=== PATIENT | male | born 1935 | race Caucasian/White ===

== ENCOUNTER → 2016-11-10 | Outpatient (CLI) | payer BC ==
[~2016-11-10] MED LIST: ASCO500T3 PO; MULT-506 PO; NMN10 PO; OMEG10007 PO; RIVA3CAP2 PO; SILD100T PO
--- NOTE | 2016-11-10 11:22 | DIAGNOSTIC IMAGING REPORT ---
TWO VIEW CHEST CLINICAL HISTORY: Cough. FINDINGS: PA and lateral chest radiographs are obtained. No prior studies are available for comparison at the time of dictation. The heart is enlarged and there is atherosclerotic calcification of the thoracic aorta. The pulmonary vasculature is noncongested. An accessory azygous fissure is incidentally noted. Nonspecific interstitial thickening is observed. There is minimal left basilar atelectasis. No airspace consolidation or pleural effusion is identified. There is no pneumothorax. The skeletal structures are osteopenic. There are healed right-sided rib fractures. Degenerative change is noted throughout the thoracic spine. IMPRESSION: Cardiac enlargement with no acute cardiopulmonary abnormality. Electronically signed by: Shad Holm M.D. 11/10/2016 11:21 AM Dictated Date/Time: 11/10/2016 11:20 AM
== END | disposition home or self-care (01) ==
LOC: C.RAD1850 11:01
PROVIDERS: ATTEND Family Medicine
DX: R05 Cough (principal); Z87.891 Personal history of nicotine dependence

== ENCOUNTER → 2016-12-11 | Outpatient (CLI) | payer BC | END | disposition home or self-care (01) | LOC: C.MAMM 13:40 | PROVIDERS: ATTEND Family Medicine | DX: M85.852 Other specified disorders of bone density and structure, left thigh (principal) ==

== ENCOUNTER 2020-11-15 08:39 | Observation (INO) ==
--- NOTE | 2020-10-25 11:07 | PAT Medication Instructions ---
Medication Instructions Date of Service October 25, 2020 Home Medications Medication Instructions Recorded sildenafil 100 mg tablet 100 mg PO DAILY PRN #20 tab 06/27/19 amlodipine [Norvasc] 2.5 mg PO QPM #30 tab 08/20/20 lisinopril [Zestril] 2.5 mg PO QAM #15 tab 08/20/20 diclofenac sodium 75 mg 75 mg PO BID PRN #60 tab 10/09/20 tablet,delayed release memantine 10 mg tablet 10 mg PO BID multivitamin 1 tab PO QAM rivastigmine tartrate 1.5 mg capsule 1.5 mg PO PM sildenafil 100 mg tablet 100 mg PO DAILY PRN aspirin [Aspirin Low Dose] 81 mg PO Q OTHER DAY cholecalciferol (vitamin D3) [Vitamin D3] 25 mcg PO QAM ibandronate 150 mg PO MONTHLY rivastigmine tartrate 3 mg PO QAM amlodipine [Norvasc] 2.5 mg PO QPM lisinopril [Zestril] 2.5 mg PO QAM diclofenac sodium 75 mg tablet,delayed release 75 mg PO BID PRN Continue as directed aspirin [Aspirin Low Dose] 81 mg PO Q OTHER DAY (OK to take on day of surgery unless otherwise instructed by your surgeon) ibandronate 150 mg PO MONTHLY (just do not take on day of surgery if scheduled) ASK your surgeon for instructions diclofenac sodium 75 mg tablet,delayed release 75 mg PO BID PRN STOP taking 24 hours before surgery rivastigmine tartrate 1.5 mg capsule 1.5 mg PO PM rivastigmine tartrate 3 mg PO QAM *Do not take AM or PM dose the day before surgery, and do not take on the day of surgery* DO NOT take the morning of surgery multivitamin 1 tab PO QAM sildenafil 100 mg tablet 100 mg PO DAILY PRN cholecalciferol (vitamin D3) [Vitamin D3] 25 mcg PO QAM lisinopril [Zestril] 2.5 mg PO QAM Take morning of surgery With a small sip of water, OTHERWISE NOTHING TO EAT OR DRINK AFTER MIDNIGHT: memantine 10 mg tablet 10 mg PO BID Take evening before surgery memantine 10 mg tablet 10 mg PO BID amlodipine [Norvasc] 2.5 mg PO QPM Other Notes If you have any questions please call us at [phone] or [phone] or [phone] or [phone]
--- NOTE | 2020-10-26 09:44 | Anesthesiology Consultation ---
Date of Service October 26, 2020 Assessment & Plan (1) Encounter for pre-operative examination: COVID Status: As of 10/26 assessment, patient denies travel to endemic area, known exposure/sick contacts, or symptoms of COVID19. Patient instructed that they and their household members must follow strict social distancing guidelines, wear a mask in public and avoid travel/events/gatherings for 14 days prior to surgery. Preoperative COVID19 testing to be completed prior to surgery per surgeon's arrangements (11/09). Patient made aware to self-isolate as much as possible between COVID testing and surgery. Please note, without hearing aids patient is extremely hard of hearing. L ear is better than right ear, but once aids are removed pt will be essentially deaf. Chart Review Chart Review: Acceptable Risk for Surgery and Patient seen in Pre Admission Testing Teaching & Discussion Instructed NPO after midnight before surgery, except medications with 15 cc of water. Medication instructions provided according to the PAT guidelines. History Surgery Operation Date: 11/15/20 11:15 Proposed Procedures p Left Total Knee Arthroplasty - Bob Guerrero MD Height/Weight Height: 6 ft Weight: 93.9 kg Allergies Allergy/AdvReac Type Severity Reaction Status Date / Time morphine Allergy Mild Vomiting Verified 10/25/20 09:34 donepezil Allergy Unknown nightmares Verified 10/25/20 09:34 Sulfa (Sulfonamide Allergy Unknown Rash Verified 10/25/20 09:34 Antibiotics) Medications Home Medications Medication Instructions Recorded Confirmed Last Taken memantine 10 mg tablet 10 mg PO BID 04/24/19 10/25/20 08/19/20 multivitamin 1 tab PO QAM 04/24/19 10/25/20 08/19/20 rivastigmine tartrate 1.5 mg 1.5 mg PO PM 04/24/19 10/25/20 08/18/20 capsule sildenafil 100 mg tablet 100 mg PO DAILY PRN #20 tab 06/27/19 10/25/20 Unknown aspirin [Aspirin Low Dose] 81 mg PO Q OTHER DAY 08/19/20 10/25/20 08/18/20 cholecalciferol (vitamin D3) 25 mcg PO QAM 08/19/20 10/25/20 08/19/20 [Vitamin D3] ibandronate 150 mg PO MONTHLY 08/19/20 10/25/20 07/23/20 rivastigmine tartrate 3 mg PO QAM 08/19/20 10/25/20 08/19/20 amlodipine [Norvasc] 2.5 mg PO QPM #30 tab 08/20/20 10/25/20 Unknown lisinopril [Zestril] 2.5 mg PO QAM #15 tab 08/20/20 10/25/20 Unknown diclofenac sodium 75 mg 75 mg PO BID PRN #60 tab 10/09/20 10/25/20 Unknown tablet,delayed release Past Medical History Medical History Benign localized hyperplasia of prostate with urinary obstruction Chest pain Isolated event on 08/19/20, seen at [facility] ED. Cardiac workup negative, ruled GI-related/heartburn. OP stress test 08/20/20 negative for ischemia. Left knee DJD Obstructive sleep apnea CPAP, pt reports full compliance Osteoarthritis Senile dementia Patient is on memantine and rivastigmine. However, feels his confusion is more related to being [place] and missing information, as he retains information that he hears. Exercise / Class Metabolic Activity II 4-5 Yardwork/Stairs/Walk up hill (Using walker for longer distances, can do 1 FOS without CP or SOB) Past Family History Family History Father Lung cancer Daughter Sleep apnea Sister Sleep apnea Other Alzheimer disease Past Surgical History Surgical History History of anesthesia reaction DISORIENTED SLOW TO WAKE UP History of cataract extraction R/L History of colonoscopy History of eye surgery DETACHED RETINA History of hernia repair R/L-TOTAL 3 History of rotator cuff surgery bilateral Past Anesthesia History No Hx of Anesthesia Complications (other than remote h/o delirium/confusion with GA) and No Family Hx of Anesthesia Complications History of PONV No Hx of PONV and No Hx of Motion Sickness Social History Smoking Status: Former smoker Do You Dip or Chew Tobacco: No Smoking End Date: QUIT 30+ YRS AGO Hx Alcohol Use: Yes Alcohol type: beer alcohol intake frequency: a few times a month Hx Substance Use: No Review of Systems Pt denies any recent shortness of breath, palpitations, cough, fever, URI, or uncontrolled acid reflux. No chest pain or reflux symptoms since ER visit 08/19/20 ruled to be GI-related. Physical Exam Vital Signs BP: 120/74 P: 52bpm SPO2: 96% RA T: 98.2 F R: 16 ENMT Mouth: + dentures, + edentulous and + macroglossia Thyromental Distance: > or= 3.5 Finger Breadths Mallampati Class: III Neck + facial hair; neck extension not limited Respiratory normal respiratory effort, lungs clear to auscultation + prolonged expiratory phase Cardiovascular Rate/Rhythm: regular rhythm and + bradycardic Heart Sounds: no murmur Extremities: + edema (trace pedal B/L) Testing Laboratory Results 10/26/20 10:06 10/26/20 10:06 PT 10.9 Seconds (9.0-12.0) 10/26/20 10:06 INR 1.1 (0.9-1.1) 10/26/20 10:06 APTT 26.5 Seconds (21.0-31.0) 10/26/20 10:06 Blood Type AB Positive 10/26/20 10:06 Antibody Screen NEGATIVE 10/26/20 10:06 Electrocardiogram Date: 08/19/20 Findings: + SB @ (53bpm) Left axis deviation. Minimal voltage criteria for LVH, may be normal variant. Compared to EKG of 12/26/2013, PVCs are no longer present. Chest X-Ray Date: 08/19/20 FINDINGS: Incidental note is made of an azygos fissure. There is no pneumothorax or pleural effusion. Cardiomegaly is unchanged. There is mild interstitial thickening and bibasilar opacities. IMPRESSION: 1. Pulmonary vascular congestion with possible mild pulmonary edema. 2. Bibasilar opacities which may reflect atelectasis or an infectious process*. Radiographic follow-up is recommended. *See CTA below confirming atelectasis in lung bases. Stress Test Date: 08/20/20 Type: exercise Resting EF: 65-70% Normal stress echo at 7.6 METs and peak HR of 93% MPHR. No exercise-induced chest pain. No EKG changes. Baseline echocardiogram notes normal LV systolic function without WMA. Other Testing Chest CTA 08/19/2020 IMPRESSION: 1. No pulmonary emboli identified although segmental and subsegmental pulmonary arteries within the lower lobes are suboptimally assessed due to respiratory motion. 2. Moderate cardiomegaly. 3. Bilateral lower lobe airspace opacities which favor atelectasis. 4. Ectatic ascending aorta, measuring 4.3 cm. Lumbar spine MRI 06/20/2020 FINDINGS: Lumbar spine: Marrow signal intensity is heterogeneous. Vertebral body height and alignment are maintained throughout the lumbar spine. Anterior and lateral marginal osteophytes are seen throughout. There is no evidence of spondylolysis. No destructive bony lesion is seen. Hemangiomas are noted in the bodies of T12 and L3. Chronic degenerative endplate change is seen at all lumbar levels. Mild endplate edema is noted at T12-L1 and L3-L4. Intravertebral discs: Degenerative disc desiccation and loss of height is seen throughout the lumbar spine. Loss of height is moderate at L1-L2 and L2-L3. Spinal cord: The visualized spinal cord is normal in morphology and signal intensity. The conus medullaris terminates at the T12-L1 interspace. The nerve roots of the cauda equina are normal in morphology. T11-T12: There is a small posterior disc osteophyte complex. The central canal and neural foramina are clear. T12-L1: There is a small posterior disc bulge. The central canal and neural foramina are patent. L1-L2: There is broad-based posterior disc bulge with annular fissure. There is no significant acquired compromise of the central canal. There is bilateral subarticular stenosis. In conjunction with facet arthropathy this causes mild bilateral neural foraminal narrowing. L2-L3: There is a small posterior disc osteophyte complex. No significant acquired compromise of the central canal is identified. There is bilateral subarticular stenosis, with possible impingement on the exiting left L2 nerve root. Disc osteophyte complex also abuts the transiting nerve roots. In conjunction with facet arthropathy there is mild bilateral neural foraminal narrowing. L3-L4: There is broad-based posterior disc bulge with annular fissure. In conjunction with hypertrophy of the ligamentum flavum there is mild acquired compromise of the central canal with a minimum AP diameter of 7 mm. There is bi lateral subarticular stenosis, with probable impingement on the exiting L3 nerve roots. The disc bulge also abuts the transiting nerve roots. In conjunction with facet arthropathy there is moderate to severe left and moderate right neural foraminal stenosis. L4-L5: There is a small posterior disc bulge, with no significant acquired compromise of the central canal. There is bilateral subarticular stenosis. In conjunction with lateral osteophytosis and facet arthropathy, facet arthropathy contributes to mild right neural foraminal stenosis. L5-S1: The central canal is clear. Facet arthropathy causes minimal left-sided neural foraminal narrowing. Sacrum: The visualized sacrum is normal in morphology and signal intensity. Soft tissues: There is mild fatty atrophy of the paraspinous musculature. Bilateral renal cysts measure up to 3.3 cm. The retroperitoneal structures are otherwise grossly unremarkable but incompletely evaluated. There is severe left- sided neural foraminal stenosis with probable impingement on the exiting left L4 nerve root. IMPRESSION: 1. Multilevel lumbosacral spondylosis as above. See discussion for detailed level by level analysis. 2. Degenerative disc disease as above. 3. No destructive bony lesion is seen.
[2020-10-26 11:04] LABS: Basophils # (auto) 0.02 K/uL (0-0.2); Basophils % (auto) 0.2 %; Eosinophils # (auto) 0.23 K/uL (0-0.5); Eosinophils % (auto) 2.8 %; Hematocrit (blood only) 45.7 % (42-52); Hemoglobin 15.3 g/dL (14.0-18.0); Immature Granulocytes # (auto) 0.03 K/uL (0.00-0.02); Immature Granulocytes % (auto) 0.4 %; Lymphocytes # (auto) 1.12 K/uL (1.2-3.4); Lymphocytes % (auto) 13.7 %; Mean Corpuscular Hemoglobin 30.4 pg (25-34); Mean Corpuscular Hgb Conc 33.5 g/dL (32-36); Mean Corpuscular Volume 90.9 fL (80-100); Mean Platelet Volume 9.4 fL (7.4-10.4); Monocytes # (auto) 0.88 K/uL (0.11-0.59); Monocytes % (auto) 10.8 %; Neutrophils # (auto) 5.89 K/uL (1.4-6.5); Neutrophils % (auto) 72.1 %; Platelet Count 188 K/uL (130-400); RDW Coefficient of Variation 12.4 % (11.5-14.5); RDW Standard Deviation 41.3 fL (36.4-46.3); Red Blood Count 5.03 M/uL (4.7-6.1); White Blood Count 8.17 K/uL (4.8-10.8)
[2020-10-26 11:07] LABS: BUN Creatinine Ratio 23.8 (10-20); Calcium 9.4 mg/dl (8.5-10.1); Est GFR (Non-African American) 84.6; Potassium 4.3 mmol/L (3.5-5.1)
[2020-10-26 11:10] LABS: INR 1.1 (0.9-1.1); Partial Thromboplastin Time 26.5 Seconds (21.0-31.0); Prothrombin Time 10.9 Seconds (9.0-12.0)
[~2020-11-15 08:39] MED LIST changes: +ACETAMINOPHEN 500 MG TAB PO SCH; -ASCO500T3 PO; +BUPIVACAINE 0.25% 30 ML VIAL ONE; +BUPIVACAINE 0.5 % 5 MG/1 ML PF 10ML VIAL ONE; +BUPIVACAINE LIPOSOME/PF 266 MG, BUPIVACAINE/EPINEPHRINE 50 ML, SODIUM CHLORIDE 0.9% 30 ... INFIL SCH; +EPINEPHrine INJ 1 MG/ML AMP ONE; +FAMOTIDINE 20 MG TAB PO SCH; +GABAPENTIN 300 MG CAP PO SCH; +LR 500ML BOLUS, THEN 15ML/HR IV SCH; +LR 60ML/HR IV SCH; +METOCLOPRAMIDE HCL 10 MG TABLET PO SCH; -MULT-506 PO; -NMN10 PO; -OMEG10007 PO; -RIVA3CAP2 PO; -SILD100T PO; +TRANEXAMIC ACID 1,000 MG **IV Intra-op IV SCH; +ceFAZolin 2000MG 2,000 MG/15 ML SYR IV SCH
--- NOTE | 2020-11-15 08:56 | History & Physical Bridge Note ---
Date of Service November 15, 2020 History & Physical Bridge Note I have examined the patient, reviewed the History & Physical and in the interval since the performance of the History & Physical I have noted the following changes of clinical significance: no changes noted
[2020-11-15] MEDS ORDERED: MIDAZOLAM HCL 1 MG/ML 2ML VIAL ONE (09:18)
[2020-11-15] MEDS ORDERED: PROPOFOL IV EMULSION 10 MG/ML 20 ML VIAL IV ONE (10:01)
[2020-11-15] MEDS ORDERED: SODIUM CHLORIDE 0.9% PF 50 ML VIAL ONE (10:45)
[2020-11-15] MEDS ORDERED: BUPIVACAINE LIPOSOME 1.3% 266 MG/20 ML VIAL ONE (10:45)
[2020-11-15] MEDS ORDERED: EPINEPHrine INJ 1 MG/ML AMP ONE (10:46)
[2020-11-15] MEDS ORDERED: BUPIVACAINE 0.25% 30 ML VIAL ONE (10:46)
[2020-11-15] MEDS ORDERED: ATROPINE SULFATE 0.1 MG/ML 10ML SYR IV PRN (11:34)
[2020-11-15] MEDS ORDERED: ONDANSETRON INJ 2 MG/ML 2 ML VIAL IV PRN ×2 (11:34→14:08)
[2020-11-15] MEDS ORDERED: fentaNYL citrate 100 MCG/2 ML VIAL IV PRN (11:34)
[2020-11-15] MEDS ORDERED: HYDROmorphone INJ 2 MG/ML SYR/VIAL IV PRN (11:34)
[2020-11-15] MEDS ORDERED: ePHEDrine sulfate 50 MG/ML AMP IV PRN (11:34)
[2020-11-15] MEDS ORDERED: ePHEDrine sulfate 50 MG/ML AMP ONE (12:17)
--- NOTE | 2020-11-15 12:56 | Operative Report ---
Post Operative Report Pre & Post Diagnosis Operation Date: 11/15/20 10:40 Pre-Op Diagnosis: Left Knee Advanced Degenerative Joint Disease Post-Op Diagnosis: Left Knee Advanced Degenerative Joint Disease I identified the patient and participated in the time-out.: Yes Procedure Operation Date: 11/15/20 10:40 Actual Procedures p Left Total Knee Arthroplasty(Left) - Bob Guerrero MD Surgeon Bob Guerrero MD Sock Folder ALONZO Haq Estimated Blood Loss 50 Findings Consistent with Post-Op Diagnosis Operative findings were advanced left knee tricompartment DJD. He had a pretty extensive grade 4 [id number] disease in all 3 compartments most severe in the medial compartment. Moderate-sized joint effusion. Osteophytes in all 3 compartments. Fluids 1100 cc Specimens Left knee sent for pathology. Drains None. Anesthesia Type Spinal Complications none Disposition Accompanied Patient To Recovery: No Disposition: Recovery Room Indications Patient 85-year-old fairly active gentleman who has had a long history of left knee pain discomfort. I been treating him over the years with injections which became less successful over the past year. He became more debilitated by his knee pain requiring assistance devices to get around. X-ray showed advanced tricompartment DJD. He elected proceed with surgical treatment. Description of Procedure Operative implants consist of: 1 Biomet Vanguard size 75 left posterior stabilized femoral component. 2. Biomet size 79 tibial tray. 3. 12 mm posterior stabilized polyethylene insert. 4. 34 x 8 and half all polypatella. The patient was taken the operating, identified, placed on the operating table supine position but all contractors were properly padded. IV antibiotics tried by anesthesia team. A spinal anesthetic and abductor canal block had been provided in the holding area. Florence catheter was placed in sterile fashion. A left thigh turn was then placed in the left lower extremities and prepped draped in usual sterile fashion. The left leg was elevated exsanguinated with use of an Esmarch and turns placed at 300 mmHg. An anterior approach left knee was then performed to longitudinal incision centered over the patella. Sharp dissection got through subcutaneous tissue down the extensor mechanism. A medial parapatellar arthrotomy incision was made. Some subperiosteal dissection was carried out medially. The fat pad was resected from each patella tendon. Lateral patellofemoral ligament was released. Patella subluxated laterally and the knee was flexed. The osteophytes were taken off distal femur. The ACL and PCL were then released from distal femur and the tibia subluxated anteriorly. The external tibial alignment jig was then placed in the interface the tibia and adjusted 14 mm medially. Proximal tibial cut was made remove about 3 to 4 mm of bone from the medial side. The tibia sized to a size 79. Attention drawn the femur. The distal femur was then with a sharp drop with intramedullary canal was suction. A left 6 degree valgus cutting guide was placed. Distal femoral cutting block was pinned in place. The distal femoral cut was made to take an additional 3 mm of bone off distal femur. The femur was then sized and sized to a size 75. The AP cutting block was pinned parallel to the epicondylar axis which was 6 degrees of external rotation. The anterior cut, anterior chamfer, posterior cut, posterior chamfer cuts were made. The box cutting guide was placed in just slight lateral box cut was made. The knee was flexed. The remnants of the medial lateral menisci were excised. The osteophytes were taken off the posterior aspect the femur. A trial femoral component was placed for the tibial tray was pinned in maximum external rotation and the drill and stem punch used to create defect in proximal tibia for the tibial tray. The knee was then trialed and the 12 mm insert fit most appropriately. Attention drawn the patella. The patella was cleaned of all soft tissues. Patella thickness measured 25 mm in thickness was cut down to 15. Was sized to a size 34 patella. The lug holes were drilled for the 34 patella. The lateral osteophyte was removed. Patella button was placed. Knee was taken through range of motion patella tracked nicely with no thumbs test. Attention drawn to placing permanent components. Nupathe all trial components were removed. Bone plug was placed in the distal femur limit blood loss. A double batch Palacos G cement was mixed. A Biomet Vanguard size 75 left posterior stabilized femoral component, size 79 tibial tray, a 12 mm posterior stabilized polyethylene insert, and a 34 x 8 and half all polypatella were then cemented in position. Knee was brought out in full extension until cement hardened. Final cement check was then performed. Pericapsular tissues were injected with a total of 100 cc of combination of 20 cc of Exparel, 30 cc normal saline, 50 cc of quarter percent Marcaine with epinephrine. Patient did receive 1 g tranexamic acid. The tourniquet was let down for a final turn time of 58 minutes. Hemostasis assured use electrocautery. The wound was irrigated with copious amounts of well pulsatile lavage. The extensor mechanism closed with combination 1 PDS suture #1 Vicryl suture in [id number] fashion. Extensor mechanism checked found to be intact the subcutaneous tissue then closed with 2 Dexon suture in a buried interrupted fashion skin was closed skin jonna. Legs then cleaned dried and sterile dressing both Xeroform, 4 x 4's, sterile ABD pad, sterile cast padding, Canelo bandage were applied. Patient then transferred to the recovery room in stable condition. Patient tolerated procedure well and there were no complications. Williams Haq, my physician visitor services assistant, was present for the entire procedure. His assistance was essential and required for appropriate patient positioning, prepping and draping, surgical exposure, performing the technical details of the operation, placement the implants, closure of the wound, and placement of the sterile bandage. I attest to the content of the Intraoperative Record and any orders documented therein. Any exceptions are noted below.
--- NOTE | 2020-11-15 13:09 | XRay Report ---
XR knee LT 1 or 2V routine CLINICAL HISTORY: Surgical Post Op COMPARISON: None. DISCUSSION: There are postsurgical changes of a total left knee arthroplasty and patellar resurfacing . The femoral and tibial components appear well seated. There are overlying skin jonna. There is ga s present within the soft tissues consistent with recent surgery. IMPRESSION: Postsurgical changes of a total left knee arthroplasty. ACT 112: Negative or not required by law. Electronically signed by: Sharad Mariano M.D. 11/15/2020 1:08 PM
--- NOTE | 2020-11-15 13:52 | Anesthesiology Progress Note ---
Date of Service November 15, 2020 Anesthesia Post Procedure Vital Signs Vital Signs: Temp Pulse Pulse Resp BP Pulse Ox 11/15/20 13:50 36.4 C L 57 L 16 139/68 95 11/15/20 13:40 56 L 16 155/64 H 97 11/15/20 13:30 58 L 16 128/70 94 11/15/20 13:20 65 16 135/72 95 11/15/20 13:10 59 L 16 141/68 H 95 11/15/20 13:00 62 15 139/60 95 11/15/20 12:52 36.2 C L 76 18 109/68 96 11/15/20 09:21 36.8 C 53 L 20 160/89 H 97 Pain Intensity Left Knee: Pain Intensity: 5 Transfer of Care Handoff Completed per policy Notes Mental Status: alert / awake / arousable and participated in evaluation Patient Amnestic to Procedure: Yes Nausea / Vomiting: adequately controlled Pain: adequately controlled Airway Patency, RR, SpO2: stable & adequate BP & HR: stable & adequate Hydration State: stable & adequate Anesthetic Complications: no major complications apparent and Pt Satisfied with anesthetic care Notes: pt has right sided facial drop at baseline. Pt moving all extremities. Pt wihtout slured speech. Smile symmetric
[2020-11-15] MEDS ORDERED: ALUMINUM/MAGNESIUM SUSP 30 ML UDC PO PRN (14:08)
[2020-11-15] MEDS ORDERED: bisacodyL 10 MG SUPP PR PRN (14:08)
[2020-11-15] MEDS ORDERED: NON-FORMULARY MEDICATION (Ibandronate 150 mg tablet) PO SCH (14:08)
[2020-11-15] MEDS ORDERED: METOCLOPRAMIDE HCL INJ 5 MG/ML 2 ML VIAL IV PRN (14:08)
[2020-11-15] MEDS ORDERED: traMADol HCL 50 MG TABLET PO PRN (14:08)
[2020-11-15] MEDS ORDERED: TAMSULOSIN HCL 0.4 MG CAP PO PRN (14:08)
[2020-11-15] MEDS ORDERED: MAGNESIUM HYDROXIDE SUSP 30 ML UDC PO PRN (14:08)
[2020-11-15] MEDS ORDERED: NON-FORMULARY MEDICATION (Sildenafil 100 mg tablet) PO PRN (14:08)
[2020-11-15] MEDS ORDERED: NALOXONE HCL 0.4 MG/1 ML VIAL/CARP IV PRN (14:08)
[2020-11-15] MEDS: SODIUM CHLORIDE 0.9% 1000ML 1,000 ML IV SCH (14:31)
[2020-11-15] MEDS: ACETAMINOPHEN 500 MG TAB PO SCH ×2 (15:12→21:30)
[2020-11-15] MEDS: ASCORBIC ACID 500 MG TAB PO SCH (16:07)
[2020-11-15] MEDS: KETOROLAC TROMETHAMINE 15 MG/ML VIAL IV SCH ×2 (16:07→21:31)
[2020-11-15] MEDS ORDERED: TRANEXAMIC ACID / 0.7% NACL 1,000 MG/100 ML BAG IV SCH (18:47)
[2020-11-15] MEDS ORDERED: amLODIPine BESYLATE 5 MG TAB PO SCH (21:00)
[2020-11-15] MEDS ORDERED: RIVASTIGMINE TARTRATE 1.5 MG CAP PO SCH (21:00)
[2020-11-15] MEDS ORDERED: SENNA 8.6 MG TAB PO SCH (21:00)
[2020-11-15] MEDS: ASPIRIN 81 MG ECTAB PO SCH (21:30)
[2020-11-15] MEDS: DOCUSATE SODIUM 100 MG CAP PO SCH (21:30)
[2020-11-15] MEDS: MEMANTINE HCL 10 MG TAB PO SCH (21:31)
[2020-11-15] MEDS: ceFAZolin 2000MG 2,000 MG/15 ML SYR IV SCH (21:31)
[2020-11-16] MEDS: SODIUM CHLORIDE 0.9% 1000ML 1,000 ML IV SCH (00:09)
[2020-11-16] MEDS: ceFAZolin 2000MG 2,000 MG/15 ML SYR IV SCH (04:54)
[2020-11-16] MEDS: KETOROLAC TROMETHAMINE 15 MG/ML VIAL IV SCH ×2 (04:55→10:30)
[2020-11-16] MEDS: ACETAMINOPHEN 500 MG TAB PO SCH (05:03)
[2020-11-16 05:19] LABS: Hematocrit (blood only) 40.4 % (42-52); Hemoglobin 13.5 g/dL (14.0-18.0); Mean Corpuscular Hemoglobin 30.6 pg (25-34); Mean Corpuscular Hgb Conc 33.4 g/dL (32-36); Mean Corpuscular Volume 91.6 fL (80-100); Platelet Count 176 K/uL (130-400); RDW Coefficient of Variation 12.6 % (11.5-14.5); RDW Standard Deviation 42.4 fL (36.4-46.3); Red Blood Count 4.41 M/uL (4.7-6.1); White Blood Count 8.99 K/uL (4.8-10.8)
[2020-11-16 05:43] LABS: BUN Creatinine Ratio 14.5 (10-20); Est GFR (African American) 96.4 ml/min; Est GFR (Non-African American) 83.2 ml/min; Potassium 4.1 mmol/L (3.5-5.1)
[2020-11-16] MEDS ORDERED: dexAMETHasone 10 MG in SYRINGE 0 ML IV SCH (08:00)
[2020-11-16] MEDS: MEMANTINE HCL 10 MG TAB PO SCH (08:47)
[2020-11-16] MEDS: DOCUSATE SODIUM 100 MG CAP PO SCH (08:49)
[2020-11-16] MEDS: ASCORBIC ACID 500 MG TAB PO SCH (08:49)
[2020-11-16] MEDS: ASPIRIN 81 MG ECTAB PO SCH (08:49)
[2020-11-16] MEDS ORDERED: lisinopril 2.5 MG TAB PO SCH (09:00)
[2020-11-16] MEDS ORDERED: RIVASTIGMINE TARTRATE 1.5 MG CAP PO SCH (09:00)
[2020-11-16] MEDS ORDERED: CHOLECALCIFEROL 1,000 UNITS 25 MCG TAB PO SCH (09:00)
[2020-11-16] MEDS ORDERED: MULTIVITAMIN TAB PO SCH ×2 (09:00)
--- NOTE | 2020-11-16 09:02 | Progress Notes ---
DATE: 11/16/2020 SUBJECTIVE: An 85-year-old gentleman postop day 1 from a left knee replacement. He is doing pretty well. Pain is controlled. No chest pain or shortness of breath. Not feeling dizzy or lightheaded. OBJECTIVE: VITAL SIGNS: Temperature 36.6. Vital signs stable. GENERAL: Shows a pleasant elderly male. He is sitting up in bed, looks pretty comfortable this morning. EXTREMITIES: Examination of the left leg reveals the dressing to be clean, dry, and intact. He can dorsiflex and plantarflex his foot appropriately. He is neurologically intact. LABORATORY DATA: Hemoglobin 13.5. Hematocrit 40.4. Electrolytes are stable. ASSESSMENT: An 85-year-old gentleman postop day 1 from left knee replacement, doing pretty well. Pain is controlled. He is neurologically intact. PLAN: 1. DVT prophylaxis including thigh-high TEDs, SCDs, and aspirin twice a day. 2. PT/OT. Weight bear as tolerated. Left total knee protocol. 3. Pain control, doing well with current pain regimen. 4. Disposition: Plan to discharge to home with some home health once adequately recovered, doing okay in therapy, pain control.
--- NOTE | 2020-11-16 10:47 | Anesthesiology Progress Note ---
Date of Service November 16, 2020 Anesthesia Post Procedure Vital Signs Vital Signs: Temp Pulse Pulse Resp BP Pulse Ox 11/16/20 07:14 36.6 C 50 L 16 122/69 95 11/16/20 03:25 36.7 C 53 L 16 119/68 97 11/15/20 21:51 36.9 C 55 L 16 150/78 H 94 11/15/20 19:08 36.6 C 72 16 152/79 H 96 11/15/20 17:13 36.6 C 60 17 158/83 H 95 11/15/20 16:09 36.4 C L 54 L 17 162/82 H 94 11/15/20 15:11 36.4 C L 11/15/20 15:09 56 L 16 159/91 H 98 11/15/20 14:34 57 L 17 151/84 H 97 11/15/20 14:10 36.3 C L 53 L 16 133/74 97 11/15/20 13:50 36.4 C L 57 L 16 139/68 95 11/15/20 13:40 56 L 16 155/64 H 97 11/15/20 13:30 58 L 16 128/70 94 11/15/20 13:20 65 16 135/72 95 11/15/20 13:10 59 L 16 141/68 H 95 11/15/20 13:00 62 15 139/60 95 11/15/20 12:52 36.2 C L 76 18 109/68 96 Pain Intensity Left Knee: Pain Intensity: 5 Notes Mental Status: alert / awake / arousable and participated in evaluation Patient Amnestic to Procedure: Yes Nausea / Vomiting: adequately controlled Pain: adequately controlled Airway Patency, RR, SpO2: stable & adequate BP & HR: stable & adequate Hydration State: stable & adequate Neuraxial Anesthesia: was administered and sensory block resolved Anesthetic Complications: no major complications apparent and Pt Satisfied with anesthetic care
--- NOTE | 2020-11-20 06:37 | Discharge Summary ---
Date of Service November 20, 2020 Discharge Data Procedures Performed Operation Date: 11/15/20 10:40 Actual Procedures p Left Total Knee Arthroplasty(Left) - Bob Guerrero MD Hospital Course (1) Status post total left knee replacement: This patient is a 85 year old admitted on 11/15/20 and underwent total knee arthroplasty. He tolerated the procedure well and there were no complications. Transferred to the PACU post op and later to the orthopedic floor for further care. He was given ancef for antibiotic prophylaxis. He was also given NATANAEL stockings, SCDs, and aspirin for DVT prophylaxis. Hemoglobin, hematocrit, and vital signs were monitored during his hospital stay and remained stable. Did not require any blood transfusions. There were no complications during his hospital stay. By post op day #1 the patient was tolerating a regular diet, pain was reasonably controlled with oral pain medicine, and he was participating in physical therapy. On post op day #1 the patient was discharged home and set up with home health care. He was given printed discharge instructions including prescriptions for extra strength tylenol, aspirin, and tramadol. Continue physical therapy, weight bearing as tolerated. Continue NATANAEL stockings. Follow up approximately 2 weeks post op or sooner if there are problems or concerns. Coding Level of Care Code None Diagnoses Status post total left knee replacement Z96.652
== END 2020-11-16 15:25 | disposition home health service (06) ==
LOC: 3E 08:39 → ASU 08:39